=== PATIENT | male | born 1985 | race Caucasian/White ===

== ENCOUNTER → 2017-02-07 | Outpatient (CLI) | payer SELFPAY ==
--- NOTE | 2017-02-07 16:14 | US ---
EXAMINATION TYPE: US scrotum with doppler. Grayscale and color Doppler Duplex imaging performed of t he scrotum. DATE OF EXAM: 02/07/2017 COMPARISON: NONE CLINICAL HISTORY: N50.812 LT TESTICULAR PAIN. Patient states no pain, palpable area on left lateral t esticle felt for over 5 years, no injury EXAM MEASUREMENTS: TESTICLES: Right Testicle: 4.6 x 3.1 x 2.2 cm Left Testicle: 4.2 x 3.1 x 2.3 cm EPIDIDYMIS HEAD: Right Epididymis: 1.1 cm Left Epididymis: 1.7 cm, 9mm epididymal cyst seen at area patient feels Doppler performed to assess for testicular vascularity; good bilateral color flow and waveforms are s een. There is no evidence of testicular torsion. Presence of hydroceles: no Presence of varicoceles: no IMPRESSION: 9 mm benign epididymal cyst at the area of palpable abnormality per the patient. Otherwis e, unremarkable scrotal ultrasound.
== END | disposition home or self-care (01) ==
LOC: RADUSWWP 15:32
PROVIDERS: ATTEND Family Medicine
DX: N50.3 Cyst of epididymis (principal)
CPT/HCPCS: 76870; 93975